=== PATIENT | female | born 1965 | race Caucasian/White ===

== ENCOUNTER → 2016-11-25 12:04 | Outpatient (CLI) | payer BC ==
[2016-08-13 07:28] VITALS: BMI 23.7
[~2016-11-25 12:04] MED LIST: ARMOUR THYROID60 M1 PO; DHEA25 M1 PO; GLUCOPHAGE500 MG PO; HORMONE; LIPITOR40 MG PO; PLAVIX75 MG PO; VICTOZA0.6 MG/0.1; VITAMIN D31000 UNI2
== END | disposition home or self-care (01) ==
LOC: D.CT 12:00
DX: N23 Unspecified renal colic (principal)